=== PATIENT | male | born 1975 | race Caucasian/White ===

== ENCOUNTER 2017-03-28 09:18 | Emergency (ER) | payer OTHER, BC ==
[~2017-03-28] VITALS: Ht 185.4 cm; Wt 83.0 kg
[~2017-03-28 09:18] MED LIST: PROZAC20 MG PO
[2017-03-28] MEDS ORDERED: TYLENOL WITH C1 EACH PO (11:23)
[2017-03-28 11:46] VITALS: BP 123/68
== END 2017-03-28 11:47 | disposition home or self-care (01) ==
LOC: EME 09:18
DX: S16.1XXA Strain of muscle, fascia and tendon at neck level, initial encounter (principal); S00.83XA Contusion of other part of head, initial encounter; V49.40XA Driver injured in collision with unspecified motor vehicles in traffic accident, initial encounter; Y92.410 Unspecified street and highway as the place of occurrence of the external cause
CPT/HCPCS: 70450; 72125; 99281; 99282